=== PATIENT | female | born 1985 | race Caucasian/White ===

== ENCOUNTER 2017-09-22 16:48 | Emergency (ER) | payer BC ==
[2017-09-22] MEDS ORDERED: SODIUM CHLORIDE 0.9% 1,000 ML IV STA (19:45)
[2017-09-22] MEDS ORDERED: LOPERAMIDE 2 MG CAP PO STA (19:45)
[2017-09-22] MEDS ORDERED: ONDANSETRON 4 MG/2 ML VIAL IVP STA (19:45)
[2017-09-22] MEDS ORDERED: PANTOPRAZOLE 40 MG/10 ML VIAL IVP STA (19:46)
--- NOTE | 2017-09-22 19:50 | ED ---
Nausea/Vomiting/Diarrhea HPI - General Chief complaint: Nausea/Vomiting/Diarrhea Stated complaint: Flu symptoms Time Seen by Provider: 09/22/17 19:34 Source: patient, RN notes reviewed, old records reviewed Mode of arrival: ambulatory Limitations: no limitations - History of Present Illness Initial comments: This patient is a 32-year-old female presents emergency department today chief complaint of nausea, vomiting and diarrhea for one day. She reports that her nieces have similar symptoms, she went over to clean the house. She reports that she woke up today with the same symptoms. Patient states she has not been able take her medications due to the vomiting. She's had clear liquidy stool. Patient states that she has some epigastric abdominal pain. She denies any blood in her stool or vomit. Patient reports that she has no fever or chills, chest pain or shortness of breath. Patient denies any recent fever, chills, shortness of breath, chest pain, back pain, abdominal pain, nausea vomiting, numbness or tingling, dysuria or hematuria, constipation or diarrhea, headaches or visual changes, or any other current symptoms - Related Data Home Medications Medication Instructions Recorded Confirmed Baclofen [Lioresal] 10 mg PO TID 09/22/17 09/22/17 Gabapentin [Neurontin] 300 mg PO TID 09/22/17 09/22/17 Ibuprofen [Motrin] 600 mg PO Q8HR PRN 09/22/17 09/22/17 Multivitamins, Thera [Multivitamin 1 tab PO DAILY 09/22/17 09/22/17 (formulary)] Sodium Chloride [Saline Mist] 1 spray EA NOSTRIL DAILY 09/22/17 09/22/17 traMADol HCL [Ultram] 50 mg PO DAILY PRN 09/22/17 09/22/17 Previous Rx's Medication Instructions Recorded Loperamide [Imodium] 4 mg PO BID #6 cap 09/22/17 Ondansetron Odt [Zofran Odt] 4 mg PO Q8HR PRN #12 tab 09/22/17 Allergies Allergy/AdvReac Type Severity Reaction Status Date / Time No Known Allergies Allergy Verified 09/22/17 19:54 Review of Systems ROS Statement: Those systems with pertinent positive or pertinent negative responses have been documented in the HPI. ROS Other: All systems not noted in ROS Statement are negative. Past Medical History Past Medical History: Fibromyalgia Additional Past Medical History / Comment(s): MS History of Any Multi-Drug Resistant Organisms: None Reported Past Surgical History: Section Past Psychological History: No Psychological Hx Reported Smoking Status: Current every day smoker Past Alcohol Use History: None Reported Past Drug Use History: None Reported General Exam - General Exam Comments Initial Comments: 32-year-old female. Patient is alert and oriented. No distress. Limitations: no limitations General appearance: alert, in no apparent distress Head exam: Present: atraumatic, normocephalic, normal inspection Eye exam: Present: normal appearance, PERRL, EOMI. Absent: scleral icterus, conjunctival injection, periorbital swelling ENT exam: Present: normal exam, mucous membranes moist Neck exam: Present: normal inspection. Absent: tenderness, meningismus, lymphadenopathy Respiratory exam: Present: normal lung sounds bilaterally. Absent: respiratory distress, wheezes, rales, rhonchi, stridor Cardiovascular Exam: Present: regular rate, normal rhythm, normal heart sounds. Absent: systolic murmur, diastolic murmur, rubs, gallop, clicks GI/Abdominal exam: Present: soft, normal bowel sounds. Absent: distended, tenderness, guarding, rebound, rigid Extremities exam: Present: normal inspection, full ROM, normal capillary refill. Absent: tenderness, pedal edema, joint swelling, calf tenderness Back exam: Present: normal inspection Neurological exam: Present: alert, oriented X3, CN II-XII intact Psychiatric exam: Present: normal affect, normal mood Course Vital Signs 09/22/17 09/22/17 09/22/17 16:50 20:39 21:27 Temperature 97.1 F L Pulse Rate 112 H 90 86 Respiratory 20 18 18 Rate Blood Pressure 118/74 115/57 124/58 O2 Sat by Pulse 99 97 97 Oximetry Medical Decision Making - Medical Decision Making 32-year-old female to plan of nausea vomiting diarrhea for one day. She reports she is not able take her medications for chronic pain. Patient states that her niece and similar symptoms. The second patient given IV fluids labwork obtained. Given Zofran, Protonix and Imodium. Patient's labwork was reviewed and all within normal limits. Patient was given liters of fluids. Discussed remaining hydrated. Will be discharged at this time with Imodium and Zofran. QUESTIONS were answered and return parameters were discussed. KUB shows no obstructive gas bowel gas pattern. - Lab Data Result diagrams: 09/22/17 20:30 09/22/17 20:30 Lab Results 09/22/17 09/22/17 09/22/17 Range/Units 17:30 20:30 20:30 WBC 6.2 (3.8-10.6) k/uL RBC 4.55 (3.80-5.40) m/uL Hgb 12.8 (11.4-16.0) gm/dL Hct 38.6 (34.0-46.0) % MCV 84.8 (80.0-100.0) fL MCH 28.0 (25.0-35.0) pg MCHC 33.1 (31.0-37.0) g/dL RDW 14.3 (11.5-15.5) % Plt Count 177 (150-450) k/uL Neutrophils % 82 % Lymphocytes % 13 % Monocytes % 3 % Eosinophils % 1 % Basophils % 0 % Neutrophils # 5.1 (1.3-7.7) k/uL Lymphocytes # 0.8 L (1.0-4.8) k/uL Monocytes # 0.2 (0-1.0) k/uL Eosinophils # 0.1 (0-0.7) k/uL Basophils # 0.0 (0-0.2) k/uL Sodium 139 (137-145) mmol/L Potassium 3.3 L (3.5-5.1) mmol/L Chloride 107 (98-107) mmol/L Carbon Dioxide 20 L (22-30) mmol/L Anion Gap 12 mmol/L BUN 11 (7-17) mg/dL Creatinine 0.74 (0.52-1.04) mg/dL Est GFR (MDRD) Af Amer >60 (>60 ml/min/1.73 sqM) Est GFR (MDRD) Non-Af >60 (>60 ml/min/1.73 sqM) Glucose 109 H (74-99) mg/dL Calcium 8.8 (8.4-10.2) mg/dL Total Bilirubin 0.3 (0.2-1.3) mg/dL AST 18 (14-36) U/L ALT 45 (9-52) U/L Alkaline Phosphatase 60 (38-126) U/L Total Protein 6.2 L (6.3-8.2) g/dL Albumin 3.5 (3.5-5.0) g/dL Amylase 38 (30-110) U/L Lipase 122 (23-300) U/L Urine Color Urine Appearance (Clear) Urine pH (5.0-8.0) Ur Specific [place] (1.001-1.035) Urine Protein (Negative) Urine Glucose (UA) (Negative) Urine Ketones (Negative) Urine Blood (Negative) Urine Nitrite (Negative) Urine Bilirubin (Negative) Urine Urobilinogen (<2.0) mg/dL Ur Leukocyte Esterase (Negative) Urine RBC (0-5) /hpf Urine WBC (0-5) /hpf Ur Squamous Epith Cells (0-4) /hpf Urine Bacteria (None) /hpf Urine Mucus (None) /hpf Influenza Type A RNA Not Detected (Not Detectd) Influenza Type B (PCR) Not Detected (Not Detectd) 09/22/17 Range/Units 20:30 WBC (3.8-10.6) k/uL RBC (3.80-5.40) m/uL Hgb (11.4-16.0) gm/dL Hct (34.0-46.0) % MCV (80.0-100.0) fL MCH (25.0-35.0) pg MCHC (31.0-37.0) g/dL RDW (11.5-15.5) % Plt Count (150-450) k/uL Neutrophils % % Lymphocytes % % Monocytes % % Eosinophils % % Basophils % % Neutrophils # (1.3-7.7) k/uL Lymphocytes # (1.0-4.8) k/uL Monocytes # (0-1.0) k/uL Eosinophils # (0-0.7) k/uL Basophils # (0-0.2) k/uL Sodium (137-145) mmol/L Potassium (3.5-5.1) mmol/L Chloride (98-107) mmol/L Carbon Dioxide (22-30) mmol/L Anion Gap mmol/L BUN (7-17) mg/dL Creatinine (0.52-1.04) mg/dL Est GFR (MDRD) Af Amer (>60 ml/min/1.73 sqM) Est GFR (MDRD) Non-Af (>60 ml/min/1.73 sqM) Glucose (74-99) mg/dL Calcium (8.4-10.2) mg/dL Total Bilirubin (0.2-1.3) mg/dL AST (14-36) U/L ALT (9-52) U/L Alkaline Phosphatase (38-126) U/L Total Protein (6.3-8.2) g/dL Albumin (3.5-5.0) g/dL Amylase (30-110) U/L Lipase (23-300) U/L Urine Color Yellow Urine Appearance Cloudy H (Clear) Urine pH 5.5 (5.0-8.0) Ur Specific [place] 1.022 (1.001-1.035) Urine Protein Trace H (Negative) Urine Glucose (UA) Negative (Negative) Urine Ketones Negative (Negative) Urine Blood Negative (Negative) Urine Nitrite Negative (Negative) Urine Bilirubin Negative (Negative) Urine Urobilinogen <2.0 (<2.0) mg/dL Ur Leukocyte Esterase Trace H (Negative) Urine RBC 2 (0-5) /hpf Urine WBC 5 (0-5) /hpf Ur Squamous Epith Cells 13 H (0-4) /hpf Urine Bacteria Moderate H (None) /hpf Urine Mucus Many H (None) /hpf Influenza Type A RNA (Not Detectd) Influenza Type B (PCR) (Not Detectd) - Radiology Data Radiology results: report reviewed KUB shows normal bowel gas pattern. Disposition Clinical Impression: Gastroenteritis Disposition: HOME SELF-CARE Condition: Good Instructions: Acute Nausea and Vomiting (ED) Additional Instructions: Patient advised to rest, increase fluids. Take the medications as prescribed. Return to the emergency department if any alarming signs or symptoms occur. Prescriptions: Loperamide [Imodium] 4 mg PO BID #6 cap Ondansetron Odt [Zofran Odt] 4 mg PO Q8HR PRN #12 tab PRN Reason: Nausea Referrals: None,Stated [Primary Care Provider] - 1-2 days Adwoa Hooks MD [STAFF PHYSICIAN] - 1-2 days Time of Disposition: 21:36
[2017-09-22 20:40] VITALS: RESP 18
[2017-09-22 20:50] LABS: Basophils % (A) 0 %; Eosinophils # (A) 0.1 k/uL (0-0.7); Eosinophils % (A) 1 %; HCT 38.6 % (34.0-46.0); HGB 12.8 gm/dL (11.4-16.0); Lymphocytes # (A) 0.8 k/uL (1.0-4.8); Lymphocytes % (A) 13 %; MCHC 33.1 g/dL (31.0-37.0); MCV 84.8 fL (80.0-100.0); Mean Platelet Volume 9.8; Monocytes # (A) 0.2 k/uL (0-1.0); Monocytes % (A) 3 %; Neutrophils # (A) 5.1 k/uL (1.3-7.7); Neutrophils % (A) 82 %; Platelet Count 177 k/uL (150-450); RBC 4.55 m/uL (3.80-5.40); RDW 14.3 % (11.5-15.5); WBC 6.2 k/uL (3.8-10.6)
[2017-09-22 21:00] LABS: ALT 45 U/L (9-52); AST 18 U/L (14-36); Albumin 3.5 g/dL (3.5-5.0); Alkaline Phosphatase 60 U/L (38-126); Amylase 38 U/L (30-110); Anion Gap 12 mmol/L; Blood Urea Nitrogen 11 mg/dL (7-17); Calcium 8.8 mg/dL (8.4-10.2); Carbon Dioxide 20 mmol/L (22-30); Chloride 107 mmol/L (98-107); Glucose 109 mg/dL (74-99); Lipase 122 U/L (23-300); Potassium 3.3 mmol/L (3.5-5.1); Sodium 139 mmol/L (137-145); Total Bilirubin 0.3 mg/dL (0.2-1.3); Total Protein 6.2 g/dL (6.3-8.2)
[2017-09-22 21:13] LABS: Appearance,Urine Cloudy (Clear); Bacteria,Urine Moderate /hpf; Bilirubin,Urine Negative (Negative); Blood,Urine Negative (Negative); Color,Urine Yellow; Glucose,Urine (UA) Negative (Negative); Ketones,Urine Negative (Negative); Leukocyte Esterase,Urine Trace (Negative); Mucus,Urine Many /hpf; Nitrite,Urine Negative (Negative); PH, Urine 5.5 (5.0-8.0); Protein,Urine Trace (Negative); RBC,Urine 2 /hpf (0-5); Specific Gravity,Urine 1.022 (1.001-1.035); Squamous Epithelial Cell,Urine 13 /hpf (0-4); Urobilinogen,Urine <2.0 mg/dL (<2.0); WBC,Urine 5 /hpf (0-5)
--- NOTE | 2017-09-22 21:34 | XR ---
EXAMINATION TYPE: XR ABDOMEN AND PELVIS, 2 VIEWS DATE OF EXAM: 09/22/2017 COMPARISON: NONE HISTORY: Pain vomiting diarrhea TECHNIQUE: 2 upright views FINDINGS: There is no pneumatosis and no pneumoperitoneum. The bowel gas pattern is normal. Skeletal structures and soft tissues are unremarkable. The visualized lung bases and pleural spaces and cardia c silhouette are unremarkable. IMPRESSION: NEGATIVE EXAMINATION.
[2017-09-22 22:06] VITALS: BP 120/59; PULSE 95; TEMP 98.6
== END 2017-09-22 22:06 | disposition home or self-care (01) ==
LOC: EC 16:48
DX: K52.9 Noninfective gastroenteritis and colitis, unspecified (principal); M79.7 Fibromyalgia; F17.200 Nicotine dependence, unspecified, uncomplicated; Z79.899 Other long term (current) drug therapy
CPT/HCPCS: 36415; 80053; 82150; 83690; 85025; 81001; 87502; 74018; 99284; 96374; 96375; 96361; J2405; C9113